=== PATIENT | female | born 2000 | race Caucasian/White ===

== ENCOUNTER 2020-02-02 16:12 | Emergency (ER) | payer OTHER ==
[~2020-02-02] VITALS: Ht 170.2 cm; Wt 75.5 kg
[2020-02-02 16:20] VITALS: BP 124/46
[2020-02-02] MEDS ORDERED: L.E.T SOLUTION TP ONE ×2 (16:32→16:34)
--- NOTE | 2020-02-02 17:50 | NUR ---
Patient given discharge instructions and they have confirmed that they understand the instructions. Patient ambulatory with steady gait.
== END 2020-02-02 17:51 | disposition home or self-care (01) ==
LOC: ED 17:00
DX: S61.211A Laceration without foreign body of left index finger without damage to nail, initial encounter (principal); X58.XXXA Exposure to other specified factors, initial encounter; Y93.89 Activity, other specified; Y92.69 Other specified industrial and construction area as the place of occurrence of the external cause; Y99.0 Civilian activity done for income or pay
CPT/HCPCS: 12041; 99284